=== PATIENT | male | born 1995 | race Caucasian/White ===

== ENCOUNTER 2020-01-11 14:08 | Emergency (ER) | payer MEDICAID, SELFPAY ==
[2020-01-11 14:37] VITALS: BP 154/92; PULSE 75; RESP 14; TEMP 36.5; O2SAT 98; BMI 29.0
--- NOTE | 2020-01-11 14:43 | XR_ITS ---
WS: [id number] LEFT SHOULDER: 3 VIEW(S) TECHNIQUE: Internal and external rotation with Y view. HISTORY: fall COMPARISON: None available. No fracture. There is mild AC joint dislocation. Distal clavicle is elevated 4 mm from normal alignme nt with the acromion. Glenohumeral joint is normal. Visualized LEFT lung is clear. XR/XR shoulder LT min 2V* [id number] IMPRESSION: Mild LEFT AC joint separation.
[2020-01-11 16:08] VITALS: PULSE 69; RESP 16; O2SAT 97
--- NOTE | 2020-01-12 07:04 | ED_ITS ---
HPI - Extremity Problem General: Chief complaint: Extremity Injury, Upper Stated complaint: fall,left shoulder pain Time Seen by Provider: 01/11/20 15:51 History of Present Illness: HPI Narrative: fell today with arms outstretched and felt a pop in his left shoulder and it hurts since he has decreased range of motion MD Complaint: joint pain Onset (ago): hour(s) Pain Consistency: constant Location: left Severity scale (1-10): 4 Quality: aching Radiation: distal Relieving factors: immobilization Exacerbating factors: range of motion Associated symptoms: Reports no associated symptoms; Deny chest pain, fever(s) or rash Review of Systems Const: Denies: fever(s), chills or body aches Eyes: Denies: change in vision or blurry vision ENMT: Denies: throat pain or nasal congestion Card: Denies: chest pain or dyspnea on exertion Resp: Denies: dyspnea, productive cough or non-productive cough GI: Denies: abdominal pain, nausea or vomiting : Denies: difficulty urinating Musc: Reports: joint pain (Left shoulder) and limited range of motion; Denies: extremity pain Skin/Breast: Denies: rash Neuro: Denies: headache(s) Psych: Denies: anxiety or depression Jeff/Lymph: Denies: easy bruising PFSH ED PFSH: Social History (Updated 01/11/20 @ 14:41 by Reinaldo Barboza RN) Smoking and tobacco status: heavy tobacco smoker Alcohol intake: never Physical Exam Const: COMMON NORMALS: no acute distress, average body habitus and patient oriented x3 HENMT: COMMON NORMALS: normocephalic HEAD & SCALP: normal to inspection and normocephalic FACE & SINUS: normal facial exam Eye: COMMON NORMALS: conjunctivae normal GENERAL EYE: appearance normal, both eyes and all related structures CONJUNCTIVA: Yes conjunctivae normal Neck/C-Spine: COMMON NORMALS: no JVD Chest: COMMONS NORMALS: normal inspection of the chest Resp: COMMON NORMALS: normal respiratory effort and clear to auscultation bilaterally AUSCULTATION: clear to auscultation bilaterally Cardio: COMMON NORMALS: no JVD, regular rate and regular rhythm RATE: re gular rate RHYTHM: regular rhythm GI: COMMON NORMALS: Normal to inspection, nondistended, normoactive bowel sounds present Extremity: COMMON NORMALS: normal to inspection LEFT UPPER EXTREMITY: Yes shoulder joint (Patient has positive resistive elbow test for pain in the left shoulder has decreased strength but 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 distally does have tenderness to the AC joint area Apley scratch test positive for pain in the rotator cuff area) Neuro: COMMON NORMALS: patient oriented x3 Course Vital Signs: Vital signs: Vital Signs Temperature 97.7 F 01/11/20 14:37 Pulse Rate 69 01/11/20 16:08 Respiratory Rate 16 01/11/20 16:08 Blood Pressure 154/92 01/11/20 14:37 Pulse Oximetry 97 01/11/20 16:08 Discharge Plan Discharge Patient Disposition: Home Clinical Impression: Acromioclavicular separation, type 1 Qualifiers: Encounter type: initial encounter Laterality: left Qualified Code(s): S43.102A - Unspecified dislocation of left acromioclavicular joint, initial encounter Rotator cuff injury Qualifiers: Encounter type: initial encounter Laterality: left Qualified Code(s): S46.002A - Unspecified injury of muscle(s) and tendon(s) of the rotator cuff of left shoulder, initial encounter Condition: Stable Prescriptions: New Daypro 600 mg tablet 600 mg PO TID Qty: 20 RF: 0 Discharge Orders: Discharge Order (Routine); Ordered 01/11/20 Ordered By: Ho Granger Discharge Diet: Usual diet Discharge Activity: Increase activity as tolerated Patient Instructions: Acromioclavicular Separation (ED) Activity Restrictions/Additional Instructions: Established with a family medical provider here either at [facility] practice clinic or [facility]. Take medication as directed wear sling along as needed apply ice to the area do exercises as explained. Discharge Date/Time: 01/11/20 16:08 Coding Level of Care Code ED Instrument Sterilizer for Abel Fwd Exam Comprehensive
== END 2020-01-11 16:08 | disposition home or self-care (01) ==
PROVIDERS: Emergency Provider Nurse Practitioner Family
DX: S43.102A Unspecified dislocation of left acromioclavicular joint, initial encounter (principal); S46.002A Unspecified injury of muscle(s) and tendon(s) of the rotator cuff of left shoulder, initial encounter; F17.210 Nicotine dependence, cigarettes, uncomplicated; W19.XXXA Unspecified fall, initial encounter
CPT/HCPCS: 12345; 73030; 99281; 99282